=== PATIENT | male | born 1955 | race Caucasian/White ===

== ENCOUNTER 2021-12-26 13:12 | Outpatient (CLI) | payer MEDICARE, SELFPAY ==
--- NOTE | ~2021-12-26 | XR_ITS ---
EXAMINATION: XR abdomen/kub 1V INDICATION: Complicated urinary tract infection TECHNIQUE: Supine views of the abdomen were obtained on 2 radiographs. COMPARISON: None FINDINGS: No urolithiasis is identified. There are bone islands of the left sacrum and L2 vertebral b jacy on the right. The bowel gas pattern is normal. A moderate volume of colonic stool is present. Cho lecystectomy clips are noted. There is moderate osteoarthritis of the hips. A suprapubic catheter is noted. IMPRESSION: 1. No radiographic correlate for the patient's symptoms. Reviewed, dictated and finalized at location F. Y LEVEL BUSINESS ANALYST
--- NOTE | ~2021-12-26 | CT_ITS ---
EXAMINATION: CT abdomen pelvis wo con DATE: 12/26/2021 13:43 INDICATION: Complicated urinary tract infection TECHNIQUE: Computed tomography (CT) of the abdomen and pelvis was performed without intravenous contr ast. The dose-length product (DLP) was 689.52 mGy-cm. Automated exposure control and iterative recons truction technique were employed. COMPARISON: None FINDINGS: Minimal dependent atelectasis is present in the lung bases. The heart size is normal. The g allbladder is surgically absent. Pneumobilia is noted. A small amount of gas is also noted in the trejo creatic duct. The spleen, pancreas, and adrenal glands are normal. The right kidney is unremarkable. There is a 1.6 cm cyst of the left kidney. No pathologically enlarged abdominal or pelvic lymph nodes are identified. There is no free intraperitoneal gas or evidence of bowel obstruction. There is a barlow prapubic catheter in the urinary bladder. There is diffuse wall thickening of the urinary bladder wit h surrounding fat stranding. There is moderate lumbar spondylosis. A sclerotic lesion in the L2 verte bral body likely represents a bone island. IMPRESSION: 1. Suprapubic catheter in position with diffuse wall thickening of the urinary bladder and surroundin g fat stranding, likely cystitis. Reviewed, dictated and finalized at location F. MACHINIST IMPRESSION: 1. Suprapubic catheter in position with diffuse wall thickening of the urinary bladder and surrounding fat stranding, likely cystitis.
== END 2021-12-26 13:13 | disposition home or self-care (01) ==
PROVIDERS: Visit Provider Nurse Practitioner Adult Health
DX: N39.0 Urinary tract infection, site not specified (principal)
CPT/HCPCS: 74018; 74176

== ENCOUNTER 2022-01-07 19:57 | Inpatient (IN) | payer MEDICARE, SELFPAY ==
--- NOTE | ~2022-01-07 | XR_ITS ---
EXAMINATION: XR chest 2V Exam Date/Time: 01/07/2022 20:25 RRT HISTORY: r/o sepsis, HX MS, HEART STENT, HEART MONITOR Comparison: None available. RESULT: Lines, tubes, and devices: Cholecystectomy clips. Loop recorder.. Lungs and pleura: Minimal streaky bibasilar atelectasis/scar. Cardiomediastinal silhouette: Stable. Other: No acute osseous or upper abdominal finding. IMPRESSION: No acute cardiopulmonary process. Reviewed, dictated and finalized at location K.
[2022-01-07 19:59] VITALS: BP 134/88; PULSE 81; RESP 18; TEMP 36.8; O2SAT 96
--- NOTE | 2022-01-07 20:06 | ECG_ITS ---
Measurements Intervals [place] Rate: 76 P: 26 NE: 135 QRS: -2 QRSD: 86 T: 17 QT: 379 QTc: 428 Interpretive Statements SINUS RHYTHM DELAYED PRECORDIAL R/S TRANSITION BORDERLINE ECG NO PREVIOUS ECG AVAILABLE FOR COMPARISON Electronically Signed On 01-07-2022 23:22:50 BATTERY TECHNICIAN by Chencho Zapata D.O.
--- NOTE | 2022-01-07 20:34 | ED.MALEGU ---
HPI - Male Genitourinary General Chief complaint: Urogenital-Male Stated complaint: Ge Maldonado sent to er for ivabx and admission Time Seen by Provider: 01/07/22 20:34 Source: patient Mode of arrival: ambulatory Limitations: no limitations History of Present Illness HPI Narrative: Patient is a 66-year-old male with a history of insulin-dependent diabetes, hypertension, hyperlipidemia, pancreatitis, BPH, chronic urinary retention with recurrent urinary tract infections s/p suprapubic catheter placement presenting to the emergency department for evaluation of urinary tract infection. Patient has been on cefdinir, Bactrim, fluoroquinolone for urinary tract infection that is now resistant to all oral antibiotics. Lasha Trinh, nurse practitioner for urology called after she had referred the patient to the emergency department today. Patient reporting nausea, low-grade fever of 99 Fahrenheit this morning. Patient denies any current abdominal pain, no episodes of emesis. Pt denies flank pain. He denies pelvic pain or distention. Patient reports that the suprapubic catheter is in place but he can cap the catheter and will urinate through the urethra. Patient does report some burning urination with this. Related Data Home Medications Medication Instructions Recorded Confirmed aspirin 81 mg tablet,delayed mg 01/07/22 release blood-glucose sensor (Dexcom G6 01/07/22 01/07/22 Sensor device) blood-glucose transmitter (Dexcom 01/07/22 01/07/22 G6 Transmitter device) carvedilol 25 mg tablet mg 01/07/22 cefdinir 300 mg capsule mg 01/07/22 cholecalciferol (vitamin D3) 25 01/07/22 mcg (1,000 unit) tablet (Vitamin D3) cholecalciferol (vitamin D3) 25 01/07/22 mcg (1,000 unit) tablet (Vitamin D3) fenofibrate nanocrystallized 145 mg PO 01/07/22 mg tablet gabapentin 300 mg capsule mg 01/07/22 icosapent ethyl 1 gram capsule g PO 01/07/22 (Vascepa) insulin aspart U-100 100 unit/mL subcut 01/07/22 (3 mL) subcutaneous pen (Novolog Flexpen U-100 Insulin aspart) insulin glargine 100 unit/mL (3 unit subcut 01/07/22 mL) subcutaneous pen (Basaglar KwikPen U-100 Insulin) insulin pump cart,cont inf,BT 01/07/22 01/07/22 (Omnipod Dash Pods (Gen 4) subcutaneous cartridge) isosorbide mononitrate 30 mg mg PO 01/07/22 tablet,extended release 24 hr levofloxacin 500 mg tablet mg 01/07/22 ercmgg-rieoznzv-hdodvwa cap PO 01/07/22 24,000-76,000-120,000 unit capsule,delayed rel (Creon) lisinopril 2.5 mg tablet mg 01/07/22 metformin 1,000 mg tablet mg 01/07/22 oxybutynin chloride 10 mg mg PO 01/07/22 tablet,extended release 24 hr pantoprazole 40 mg tablet,delayed mg PO 01/07/22 release pen needle, diabetic 31 gauge x 01/07/22 01/07/2202/13 (UltiCare Pen Needle) pen needle, diabetic 31 gauge x 01/07/22 01/07/2202/13 (UltiCare Pen Needle) polyethylene glycol 3350 17 g 01/07/22 gram/dose oral powder sulfamethoxazole 800 tablet 01/07/22 mg-trimethoprim 160 mg tablet Allergies Allergy/AdvReac Type Severity Reaction Status Date / Time iohexol Allergy Difficulty Verified 01/07/22 20:02 [From contrast - CT, X-RAY] Breathing Review of Systems Review of Systems: CONSTITUTIONAL: Reports subjective fever EYES: Denies visual changes, redness, or discharge. ENT: Denies rhinorrhea, congestion, sore throat, or otalgia. CARDIOVASCULAR: Denies chest pain, palpitations, or edema. RESPIRATORY: Denies cough or dyspnea. GASTROINTESTINAL: Reports abdominal pain, nausea without vomiting GENITOURINARY: Reports dysuria, malodorous urine SKIN: Denies rash or itching. MUSCULOSKELETAL: Denies back pain, joint pain, or myalgia. NEUROLOGIC: Denies headache, numbness, or weakness. [facility] Past Medical History Medical History (Updated 01/07/22 @ 21:39 by Chloe Oneill MD) Hyperlipidemia Hypertension Insulin dependent diabetes mellitus Suprapubic catheter Urinary tract infection
[2022-01-07 20:39] LABS: Basophils Absolute Auto 0.1 K/mm3 (0.0-0.1); Basophils Percent Auto 0.7 % (0.2-1.2); Eosinophils Absolute Auto 0.2 K/mm3 (0-0.3); Eosinophils Percent Auto 1.4 % (0-4.4); Hematocrit 46.8 % (42.0-52.0); Hemoglobin 16.9 g/dL (14.0-18.0); Immature Granulocyte Absolute 0.06 K/mm3 (0.00-0.031); Immature Granulocyte Percent A 0.6 % (0-0.5); Lymphocytes Percent Auto 37.6 % (18.3-44.2); Mean Corpuscular HGB Conc 36.1 g/dl (32-36); Mean Corpuscular Hemoglobin 32.6 pg (26-34); Mean Corpuscular Volume 90.3 fl (80-100); Mean Platelet Volume 8.8 fl (7.4-10.4); Monocytes Absolute Auto 0.9 K/mm3 (0.1-0.6); Monocytes Percent Auto 8.3 % (2.6-8.5); Neutrophils Absolute Auto 5.3 K/mm3 (1.3-6.7); Neutrophils Percent Auto 51.4 % (45.5-73.1); Platelet Count Result 247 k/mm3 (150-375); Red Blood Count 5.18 M/mm3 (4.6-6.20); Red Cell Distribution Width 12.6 % (11.5-14.5); White Blood Count 10.4 K/mm3 (4.5-10.0)
[2022-01-07 20:50] LABS: Lactic Acid Reflex 2.1 mmol/L (0.7-2.0)
[2022-01-07 20:54] LABS: Alanine Aminotransferase 48 U/L (6-50); Albumin Level 4.5 g/dL (3.5-5.1); Alkaline Phosphatase 81 U/L (38-126); Anion Gap 11 mmol/L (8-16); Aspartate Amino Transferase 46 U/L (17-59); Blood Urea Nitrogen 23 mg/dL (9-20); CRP 0.6 mg/dL (<1.0); Carbon Dioxide 21 mmol/L (22-30); Chloride 101 mmol/L (98-107); Estimated CRCL calculation 56 ml/min; Estimated Glomerular Filt Rate 60; Glucose 295 mg/dL (65-110); INR 1.1; Lipase 131 U/L (23-300); Potassium 4.2 mmol/L (3.4-5.0); Prothrombin Time 13.3 Seconds (11.1-14.7); Sodium 133 mmol/L (137-145)
[2022-01-07 20:55] LABS: Partial Thromboplastin Time 24.6 SECONDS (22.3-36.8)
[2022-01-07 21:03] LABS: Troponin I < 0.012 ng/mL (0.000-0.034)
[2022-01-07 21:16] LABS: Influenza A QL RT-PCR Negative (Negative); Influenza B QL RT-PCR Negative (Negative); RSV RNA, RT-PCR Negative (Negative); SARS-CoV-2 RNA PCR Negative
[2022-01-07 21:31] VITALS: BP 114/74; PULSE 77; RESP 16; O2SAT 95
--- NOTE | 2022-01-07 21:32 | PM.IMHP ---
H&P: HPI History of Present Illness Date/Time: 01/07/22 21:32 Chief Complaint: fevers Narrative: This is a 66-year-old male with past medical history significant for recurrent urinary tract infections, urinary retention, status post suprapubic Romero catheter placement, Type 2 diabetes mellitus, insulin dependent, peripheral diabetic neuropathy, hypertension, restless leg syndrome, dyslipidemia, chronic pancreatitis, FERNANDEZ, patient underwent outpatient therapy for urinary tract infection completed course of antibiotics patient with tenderness and pain in the hypogastric area as well as lower back, however urinalysis redemonstrates the presence of urinary tract infection with multiple drug resistant microorganism patient was sent from Urology Clinic for further evaluation management and treatment. Review of Systems Review of Systems: fevers, chills, recurrent urinary tract infection, resistant microorganism any urine. Constitutional: Constitutional: Reports chills, Reports fatigue, Reports fever(s) and Reports malaise Eyes: Eyes: Denies change in vision ENT: Denies dysphagia, Denies vertigo, Denies dizziness and Denies odynophagia Cardiovascular: Cardiovascular: Denies chest pain, Denies leg edema and Denies lightheadedness Respiratory: Respiratory: Denies chest congestion, Denies cough, Denies dyspnea, Denies dyspnea on exertion and Denies wheezing Gastrointestinal: Gastrointestinal: Reports abdominal pain ( in hypogastric area), Denies dyspepsia, Denies heartburn, Denies nausea and Denies vomiting Genitourinary: Genitourinary: Reports dysuria Musculoskeletal: Musculoskeletal: Reports back pain Integumentary/Breasts: Skin/Breast: Denies rash Neurologic: Denies vertigo, Denies dizziness, Denies focal weakness and Denies Sensory deficit (Neuro) Psychiatric: Psychiatric: Reports no additional psychiatric complaints and Reports as per HPI Endocrine: Endocrine: Denies cold intolerance, Denies flushing, Denies heat intolerance, Denies polyphagia, Denies polydipsia and Denies palpitations Hematologic/Lymphatic: Hematologic/Lymphatic: Reports no additional hematologic/lymphatic complaints and Reports as per HPI Allergic/Immunologic: Allergic/Immunologic: Reports no additional allergic/immunologic complaints and Reports as per HPI PMF Past Medical History Medical History (Updated 01/08/22 @ 00:36 by Zee Calzada MD) Hyperlipidemia Hypertension Insulin dependent diabetes mellitus Suprapubic catheter Urinary tract infection Social History Social History (Updated 01/07/22 @ 21:37 by Chloe Oneill MD) Smoking status: Never smoker Second hand tobacco smoke exposure: No Alcohol intake: never Substance use: never Substance use type: does not use Lack of Transportation: No Lack of Food: Never True Current Housing: I Have Housing Concerned About Future Housing: No Difficulty Paying Gas/Electric Bills: No Difficulty Paying for Meds: No Currently Unemployed: No Education: Decline to Answer Difficulty w/ Childcare or Family Care: No Gender identity (if verbalized by the patient): Male Spiritual care concerns: No Meds Home Medications and Allergies Home Medications Medication Instructions Recorded Confirmed Type aspirin 81 mg tablet,delayed 81 mg PO DAILY 01/07/22 01/07/22 History release blood-glucose sensor (Dexcom G6 01/07/22 01/07/22 History Sensor device) blood-glucose transmitter (Dexcom 01/07/22 01/07/22 History G6 Transmitter device) carvedilol 25 mg tablet 25 mg PO Q12-24H 01/07/22 01/07/22 History cefdinir 300 mg capsule 300 mg PO BID 01/07/22 01/07/22 History cholecalciferol (vitamin D3) 25 50 mcg PO DAILY 01/07/22 01/07/22 History mcg (1,000 unit) tablet (Vitamin D3) fenofibrate nanocrystallized 145 145 mg PO DAILY 01/07/22 01/07/22 History mg tablet gabapentin 300 mg capsule 600 mg PO BID 01/07/22 01/07/22 History insulin glargine 100
[2022-01-07 21:50] LABS: Appearance Urine Clear (Clear); Bilirubin Urine Negative (Negative); Blood Urine 1+ (Negative); Color Urine Yellow (Yellow); Glucose Urine UA 3+ mg/dL (Negative); Ketones Urine Trace mg/dL (Negative); Leukocyte Esterase Ur Trace LEU/UL (Negative); Nitrate Urine Positive (Negative); Protein Urine 1+ mg/dL (Negative); Urobilinogen Urine 0.2 mg/dL (<2.0); pH Urine 5.5 (5.0-9.0)
[2022-01-07] MEDS: SODIUM CHLORIDE 0.9% IV 1,000 ML 999 ML IV CONT (21:53)
[2022-01-07 22:01] LABS: Mucus Urine Rare /lpf; WBC Urine 31-50 /hpf
[2022-01-07] MEDS: ERTAPENEM SODIUM 0.5 GM in SODIUM CHLORIDE 0.9% IV 50 ML IVPB (22:10)
[2022-01-07 22:12] LABS: Add Urine Microscopic? YES; Budding Yeast Urine Present /hpf
[2022-01-07 22:46] VITALS: BP 126/63; PULSE 76; RESP 12; O2SAT 97
--- NOTE | 2022-01-07 22:55 | PC.NURSE ---
Receiving 3rd Med/insole lip turner unable to take report at this time. Will call back when available.
[2022-01-07 23:10] VITALS: BP 154/95; PULSE 81; RESP 18; TEMP 36; O2SAT 99
[2022-01-07 23:13] VITALS: BMI 32.1
[2022-01-07 23:37] LABS: Reflex Lactic Acid Yes or No Add Lactic
[2022-01-08 00:25] LABS: Lactic Acid 1.4 mmol/L (0.7-2.0)
[2022-01-08 01:20] VITALS: PULSE 79; RESP 18; O2SAT 97
[2022-01-08 06:00] VITALS: BP 100/63; PULSE 62; RESP 16; TEMP 36.4; O2SAT 97
[2022-01-08 06:49] LABS: Basophils Absolute Auto 0.1 K/mm3 (0.0-0.1); Basophils Percent Auto 0.9 % (0.2-1.2); Eosinophils Absolute Auto 0.2 K/mm3 (0-0.3); Eosinophils Percent Auto 2.3 % (0-4.4); Hematocrit 42.5 % (42.0-52.0); Hemoglobin 14.9 g/dL (14.0-18.0); Immature Granulocyte Absolute 0.06 K/mm3 (0.00-0.031); Immature Granulocyte Percent A 0.7 % (0-0.5); Lymphocytes Absolute Auto 3.39 K/mm3 (0.9-3.2); Lymphocytes Percent Auto 41.2 % (18.3-44.2); Mean Corpuscular HGB Conc 35.1 g/dl (32-36); Mean Corpuscular Hemoglobin 32.2 pg (26-34); Mean Corpuscular Volume 91.8 fl (80-100); Mean Platelet Volume 8.7 fl (7.4-10.4); Monocytes Absolute Auto 0.8 K/mm3 (0.1-0.6); Monocytes Percent Auto 9.4 % (2.6-8.5); Neutrophils Absolute Auto 3.7 K/mm3 (1.3-6.7); Neutrophils Percent Auto 45.5 % (45.5-73.1); Platelet Count Result 203 k/mm3 (150-375); Red Blood Count 4.63 M/mm3 (4.6-6.20); Red Cell Distribution Width 12.5 % (11.5-14.5); White Blood Count 8.2 K/mm3 (4.5-10.0)
[2022-01-08 07:04] LABS: Alanine Aminotransferase 40 U/L (6-50); Albumin Level 3.7 g/dL (3.5-5.1); Alkaline Phosphatase 63 U/L (38-126); Anion Gap 5 mmol/L (8-16); Aspartate Amino Transferase 41 U/L (17-59); Bilirubin,Total 1.1 mg/dL (0.2-1.3); Blood Urea Nitrogen 18 mg/dL (9-20); Calcium 8.1 mg/dL (8.4-10.2); Carbon Dioxide 24 mmol/L (22-30); Chloride 106 mmol/L (98-107); Estimated CRCL calculation 73 ml/min; Estimated Glomerular Filt Rate > 60; Glucose 176 mg/dL (65-110); Lipase 116 U/L (23-300); Sodium 135 mmol/L (137-145)
[2022-01-08 07:40] LABS: Glucose Point of Care 174 mg/dl (65-105)
[2022-01-08] MEDS: LIPASE/AMYLASE/PROTEASE 12,000 UNITS CAP 6 CAP PO ×2 (09:03→16:02)
[2022-01-08 09:04] VITALS: PULSE 62
[2022-01-08] MEDS: carvediloL 25 MG TABLET PO ×2 (09:04→20:55)
[2022-01-08] MEDS: ROSUVASTATIN 10 MG TABLET 40 MG PO (09:04)
[2022-01-08] MEDS: FENOFIBRATE NANOCRYSTALLIZED 145 MG TABLET PO (09:04)
[2022-01-08] MEDS: ASPIRIN 81 MG ENTERIC TABLET PO (09:05)
[2022-01-08] MEDS: CHOLECALCIFEROL 1,000 UNITS TABLET 2000 UNITS PO (09:05)
[2022-01-08] MEDS: lisinopriL 2.5 MG TABLET PO (09:05)
[2022-01-08] MEDS: GABAPENTIN 300 MG CAPSULE 600 MG PO ×2 (09:05→16:02)
[2022-01-08] MEDS: PANTOPRAZOLE 40 MG TABLET PO (09:05)
[2022-01-08] MEDS: ISOSORBIDE MONONITRATE 15 MG TAB.ER.24H PO (09:05)
[2022-01-08] MEDS: polyethylene glycoL 3350 17 GM POWD.PACK PO ×2 (09:06→16:03)
[2022-01-08 10:53] LABS: Glucose Point of Care 390 mg/dl (65-105)
--- NOTE | 2022-01-08 10:59 | PM.IMPN ---
Progress Note: A&P Assessment and Plan (1) Urinary tract infection: Code(s): N39.0 - Urinary tract infection, site not specified Status: Acute Assessment and Plan: recurrent. Likely from chronic suprapubic catheter patient started on ertapenem cultures in progress urology consult (2) Dysuria: Code(s): R30.0 - Dysuria Status: Acute Assessment and Plan: as above (3) Insulin dependent diabetes mellitus: Status: Acute Assessment and Plan: Accu-Cheks AC and HS carb consistent diet patient on insulin pump at home continue glargine insulin sliding scale as needed (4) Chronic indwelling Romero catheter: Code(s): Z97.8 - Presence of other specified devices Status: Acute Assessment and Plan: Romero care Subjective Date/time seen: 01/08/22 10:59 no fever. Feels better Review of Systems Constitutional: Constitutional: Reports fatigue and Reports malaise Eyes: Eyes: Denies change in vision ENT: Denies dysphagia, Denies vertigo, Denies dizziness and Denies odynophagia Cardiovascular: Cardiovascular: Denies chest pain, Denies leg edema and Denies lightheadedness Respiratory: Respiratory: Denies chest congestion, Denies cough, Denies dyspnea, Denies dyspnea on exertion and Denies wheezing Gastrointestinal: Gastrointestinal: Reports abdominal pain ( in hypogastric area), Denies dyspepsia, Denies heartburn, Denies nausea and Denies vomiting Genitourinary: Genitourinary: Reports dysuria Musculoskeletal: Musculoskeletal: Reports back pain Integumentary/Breasts: Skin/Breast: Denies rash Neurologic: Denies vertigo, Denies dizziness, Denies focal weakness and Denies Sensory deficit (Neuro) Psychiatric: Psychiatric: Reports no additional psychiatric complaints and Reports as per HPI Endocrine: Endocrine: Denies cold intolerance, Denies flushing, Denies heat intolerance, Denies polyphagia, Denies polydipsia and Denies palpitations Hematologic/Lymphatic: Hematologic/Lymphatic: Reports no additional hematologic/lymphatic complaints and Reports as per HPI Allergic/Immunologic: Allergic/Immunologic: Reports no additional allergic/immunologic complaints and Reports as per HPI Exam Const: General: comfortable, no acute distress, well developed, alert, awake, ill appearing acutely and overweight Nutritional Appearance: average body habitus Orientation/consciousness: patient oriented x3 HENMT: Head: normal to inspection, normocephalic and atraumatic Ears: hearing grossly normal bilaterally Face/Nose/Sinus: normal facial exam Face and sinus: normal facial exam Eyes: General: appearance normal, both eyes and all related structures Pupils: Equal, round and reactive pupils present EOM: EOMs intact bilaterally Neck: Neck: full ROM, no lymphadenopathy and no JVD Thyroid: thyroid normal Lymphatic: no lymphadenopathy noted Resp: Effort & Inspection: normal respiratory effort and able to speak in complete sentences Auscultation: clear to auscultation bilaterally Cardio: Jugular venous distension: no JVD Rate: regular rate Rhythm: regular rhythm Heart sounds: S1 normal heart sound present and S2 normal heart sound present GI: Inspection: other ( supply pubic catheter in place) GI Palp: Yes Soft to palpation, Yes Tenderness to palpation present (GI) ( hypogastric area) and Yes No hepatosplenomegaly present : General: Yes deferred Skin: Rashes: no rashes Other: suprapubic catheter Neuro: General: patient oriented x3 and CN's II-XI intact bilaterally Cranial nerves: Yes CN's II-XII intact bilaterally and Yes Equal, round and reactive pupils present Cognition (Neuro): normal cognition Speech: normal speech Gait exam (Neuro): Unable to assess gait Motor exam (neuro): 5/5 motor strength present throughout Extrem: General: normal to inspection, full ROM, no joint enlargement and no pedal edema Objective Data Vital Signs Vital Signs: Harini
[2022-01-08] MEDS: INSULIN ASPART (*BKC) 100 UNITS/ML SUB-Q ×3 (11:17→16:03)
--- NOTE | 2022-01-08 12:12 | WPDURCON ---
Assessment and Plan Assessment and plan (1) Chronic indwelling Romero catheter: Code(s): Z97.8 - Presence of other specified devices Status: Acute Assessment and Plan: SP tube changed on 01/02/22, not due again until 02/01/22. He has an appt with Dr. Atkins on 01/23/22 at 2pm for evaluation of chronic UTI's for a possible scope in the office. (2) Dysuria: Code(s): R30.0 - Dysuria Status: Acute (3) Urinary tract infection: Code(s): N39.0 - Urinary tract infection, site not specified Status: Acute (4) Klebsiella infection: Code(s): A49.8 - Other bacterial infections of unspecified site Status: Acute Assessment and Plan: Continue culture sensitive Invanz, repeat culture is pending at this time. Patient hasn't felt any improvement since starting IV antibiotics. Urology Consult Note HPI Date Seen: 01/08/22 Time Seen: 11:15 Requesting Physician: Jose Phelan MD Primary Care Provider: PHYSICIAN NOT ON STAFF Consult Narrative Reason for consult: Multi Drug Resistant UTI Narrative: Alex Marcum is a 66 year old male who presented to the ER for ongoing dysuria in his abdomen area around his SP tube when clamped/plugged, low grade fever at home, severe fatigue, cloudy, malodorous urine and failed treatment for an ongoing UTI that was diagnosed in our office one month ago on 12/05/21. His culture at that time grew Klebsiella only sensitive to Bactrim PO, otherwise multidrug resistant to all other oral antibiotics. He was given this for 2 weeks BID and his SP tube was changed at that time. He then f/u on 01/02/22 for another SP tube change and we repeated his urine as he continued to feel severe fatigue pain at his SP tube site and malodorous urine with a low grade fever. His repeat culture grew Klebsiella again but this time resistant to all oral antibiotics. I instructed him that we could try outpatient IV antibiotics, but he stated he was febrile and had abdominal pain therefore I recommended he proceed to the ER. I then called the ER and gave report to DR. Oneill and let her know he was sensitive to Invanz and would likely need to be admitted for IV antibiotics. His WBC is 8.2 and was 10 upon arrival. He is afebrile, creatinine is 0.90. Review of Systems Constitutional: Constitutional: Reports body ache(s), Reports fatigue and Reports lethargy Cardiovascular: Cardiovascular: Denies chest pain Respiratory: Respiratory: Denies no additional respiratory complaints Gastrointestinal: Gastrointestinal: Reports abdominal pain, Denies nausea and Denies vomiting Genitourinary: Genitourinary: Denies hematuria, Reports dysuria and Denies flank pain PMFSH Past Medical History Medical History Hyperlipidemia Hypertension Insulin dependent diabetes mellitus Suprapubic catheter Urinary tract infection Social History Social History Smoking status: Never smoker Second hand tobacco smoke exposure: No Alcohol intake: never Substance use: never Substance use type: does not use Lack of Transportation: No Lack of Food: Never True Current Housing: I Have Housing Concerned About Future Housing: No Difficulty Paying Gas/Electric Bills: No Difficulty Paying for Meds: No Currently Unemployed: No Education: Decline to Answer Difficulty w/ Childcare or Family Care: No Gender identity (if verbalized by the patient): Male Spiritual care concerns: No Meds Home Medications and Allergies Home Medications Medication Instructions Recorded Confirmed Type aspirin 81 mg tablet,delayed 81 mg PO DAILY 01/07/22 01/07/22 History release blood-glucose sensor (Dexcom G6 01/07/22 01/07/22 History Sensor device) blood-glucose transmitter (Dexcom 01/07/22 01/07/22 History G6 Transmitter device) carvedilol 25 mg tablet 2
[2022-01-08 14:00] VITALS: BP 120/52; PULSE 70; RESP 16; TEMP 35.8; O2SAT 93
[2022-01-08 14:32] LABS: Glucose Point of Care 377 mg/dl (65-105)
[2022-01-08 16:18] LABS: Glucose Point of Care 351 mg/dl (65-105)
[2022-01-08 20:55] VITALS: PULSE 56
[2022-01-08] MEDS: rOPINIRole HCL 0.25 MG TABLET PO (20:55)
[2022-01-08] MEDS: ERTAPENEM SODIUM 0.5 GM in SODIUM CHLORIDE 0.9% IV 50 ML IVPB (20:57)
[2022-01-08] MEDS: INSULIN GLARGINE (*BKC) 100 UNITS/ML 16 UNITS SUB-Q (20:58)
[2022-01-08 21:41] LABS: Glucose Point of Care 309 mg/dl (65-105)
[2022-01-08 22:00] VITALS: PULSE 56; RESP 14; TEMP 35.7; O2SAT 92
[2022-01-08] MEDS: INSULIN ASPART (*BKC) 100 UNITS/ML 6 UNITS SUB-Q (23:16)
[2022-01-09 06:00] VITALS: BP 90/40; PULSE 64; RESP 16; TEMP 35.5; O2SAT 97
[2022-01-09 07:05] VITALS: BP 103/67
[2022-01-09 08:27] LABS: Glucose Point of Care 162 mg/dl (65-105)
[2022-01-09] MEDS: ROSUVASTATIN 10 MG TABLET 40 MG PO (09:08)
[2022-01-09] MEDS: ASPIRIN 81 MG ENTERIC TABLET PO (09:08)
[2022-01-09 09:09] VITALS: PULSE 64
[2022-01-09] MEDS: ISOSORBIDE MONONITRATE 15 MG TAB.ER.24H PO (09:09)
[2022-01-09] MEDS: PANTOPRAZOLE 40 MG TABLET PO (09:09)
[2022-01-09] MEDS: lisinopriL 2.5 MG TABLET PO (09:09)
[2022-01-09] MEDS: FENOFIBRATE NANOCRYSTALLIZED 145 MG TABLET PO (09:09)
[2022-01-09] MEDS: CHOLECALCIFEROL 1,000 UNITS TABLET 2000 UNITS PO (09:09)
[2022-01-09] MEDS: LIPASE/AMYLASE/PROTEASE 12,000 UNITS CAP 6 CAP PO ×3 (09:09→16:46)
[2022-01-09] MEDS: GABAPENTIN 300 MG CAPSULE 600 MG PO ×2 (09:09→16:45)
[2022-01-09] MEDS: carvediloL 25 MG TABLET PO ×2 (09:09→22:17)
[2022-01-09] MEDS: polyethylene glycoL 3350 17 GM POWD.PACK PO ×2 (09:10→16:46)
[2022-01-09] MEDS: INSULIN ASPART (*BKC) 100 UNITS/ML SUB-Q ×5 (09:10→16:46)
[2022-01-09 12:01] LABS: Glucose Point of Care 242 mg/dl (65-105)
--- NOTE | 2022-01-09 12:28 | PM.IMPN ---
Progress Note: A&P Assessment and Plan (1) Urinary tract infection: Code(s): N39.0 - Urinary tract infection, site not specified Status: Acute Assessment and Plan: recurrent. Likely from chronic suprapubic catheter patient started on ertapenem cultures in progress urology consult (2) Dysuria: Code(s): R30.0 - Dysuria Status: Acute Assessment and Plan: as above (3) Insulin dependent diabetes mellitus: Status: Acute Assessment and Plan: Accu-Cheks AC and HS carb consistent diet patient on insulin pump at home continue glargine insulin sliding scale as needed (4) Chronic indwelling Romero catheter: Code(s): Z97.8 - Presence of other specified devices Status: Acute Assessment and Plan: Romero care Subjective Date/time seen: 01/09/22 12:28 Pain control. Exam Const: General: comfortable, no acute distress, well developed, alert, awake, ill appearing acutely, average body habitus and overweight Nutritional Appearance: average body habitus and overweight Orientation/consciousness: patient oriented x3 HENMT: Head: normal to inspection, normocephalic and atraumatic Ears: hearing grossly normal bilaterally Face/Nose/Sinus: normal facial exam Face and sinus: normal facial exam Eyes: General: appearance normal, both eyes and all related structures Pupils: Equal, round and reactive pupils present EOM: EOMs intact bilaterally Neck: Neck: full ROM, no lymphadenopathy and no JVD Thyroid: thyroid normal Lymphatic: no lymphadenopathy noted Resp: Effort & Inspection: normal respiratory effort and able to speak in complete sentences Auscultation: clear to auscultation bilaterally Cardio: Jugular venous distension: no JVD Rate: regular rate Rhythm: regular rhythm Heart sounds: S1 normal heart sound present and S2 normal heart sound present GI: Inspection: other ( supply pubic catheter in place) : General: Yes deferred Skin: Rashes: no rashes Other: suprapubic catheter Neuro: General: patient oriented x3, CN's II-XI intact bilaterally and Unable to assess gait Cranial nerves: Yes CN's II-XII intact bilaterally and Yes Equal, round and reactive pupils present Cognition (Neuro): normal cognition Speech: normal speech Gait exam (Neuro): Unable to assess gait Motor exam (neuro): 5/5 motor strength present throughout Sensory Exam: No Sensory deficit (Neuro) Extrem: General: normal to inspection, full ROM, no joint enlargement and no pedal edema Objective Data Vital Signs Vital Signs: Vital Signs - 24 hr 01/08/22 14:00 01/08/22 20:55 01/08/22 22:00 Temperature 96.4 F L 96.3 F L Pulse Rate 70 56 L 56 L Respiratory Rate 16 14 Blood Pressure 120/52 L Pulse Oximetry 93 92 Oxygen Delivery 01/08/22 20:00 01/09/22 06:00 01/09/22 07:05 Temperature 95.9 F L Pulse Rate 64 Respiratory Rate 16 Blood Pressure 90/40 L 103/67 Pulse Oximetry 97 Oxygen Delivery Room Air 01/09/22 09:09 01/09/22 08:45 Temperature Pulse Rate 64 Respiratory Rate Blood Pressure Pulse Oximetry Oxygen Delivery Room Air Intake/Output Intake/Output: Intake & Output 01/06/22 01/07/22 01/08/22 01/09/22 23:59 23:59 23:59 23:59 Intake Total 7920 031 6166 Output Total 1100 2000 Balance 7477 -234 -485 Meds/Results Medications: Active Medications Generic Name Dose Route Start Last Admin Trade Name Freq PRN Reason Stop Dose Admin Acetaminophen 650 mg 01/07/22 21:43 Acetaminophen 325 Mg Tablet PO Q4H PRN Mild Pain (1-3) or Fever Lipase/Protease/Amylase 6 cap 01/08/22 08:00 01/09/22 09:09 Lipase/Amylase/Protease 12,000 Units Cap PO 6 cap TIDWM ANGIE Administration Aspirin 81 mg 01/08/22 09:00 01/09/22 09:08 Aspirin 81 Mg Enteric Tablet PO 81 mg DAILY ANGIE Administration Carvedilol 25 mg 01/08/22 09:00 01/09/22 09:09 Carvedilol 25 Mg Tablet PO 25 mg Q12H
--- NOTE | 2022-01-09 12:32 | PM.IMPN ---
Progress Note: A&P Assessment and Plan (1) Urinary tract infection: Code(s): N39.0 - Urinary tract infection, site not specified Status: Acute Assessment and Plan: recurrent. Likely from chronic suprapubic catheter patient started on ertapenem cultures in progress urology consult (2) Dysuria: Code(s): R30.0 - Dysuria Status: Acute Assessment and Plan: as above (3) Insulin dependent diabetes mellitus: Status: Acute Assessment and Plan: Accu-Cheks AC and HS carb consistent diet patient on insulin pump at home continue glargine insulin sliding scale as needed (4) Chronic indwelling Romero catheter: Code(s): Z97.8 - Presence of other specified devices Status: Acute Assessment and Plan: Romero care Subjective Date/time seen: 01/09/22 12:32 No complaints Exam Const: General: comfortable, no acute distress, well developed, alert, awake, ill appearing acutely, average body habitus and overweight Nutritional Appearance: average body habitus and overweight Orientation/consciousness: patient oriented x3 HENMT: Head: normal to inspection, normocephalic and atraumatic Ears: hearing grossly normal bilaterally Face/Nose/Sinus: normal facial exam Face and sinus: normal facial exam Eyes: General: appearance normal, both eyes and all related structures Pupils: Equal, round and reactive pupils present EOM: EOMs intact bilaterally Neck: Neck: full ROM, no lymphadenopathy and no JVD Thyroid: thyroid normal Lymphatic: no lymphadenopathy noted Resp: Effort & Inspection: normal respiratory effort and able to speak in complete sentences Auscultation: clear to auscultation bilaterally Cardio: Jugular venous distension: no JVD Rate: regular rate Rhythm: regular rhythm Heart sounds: S1 normal heart sound present and S2 normal heart sound present GI: Inspection: other ( supply pubic catheter in place) : General: Yes deferred Skin: Rashes: no rashes Other: suprapubic catheter Neuro: General: patient oriented x3, CN's II-XI intact bilaterally and Unable to assess gait Cranial nerves: Yes CN's II-XII intact bilaterally and Yes Equal, round and reactive pupils present Cognition (Neuro): normal cognition Speech: normal speech Gait exam (Neuro): Unable to assess gait Motor exam (neuro): 5/5 motor strength present throughout Sensory Exam: No Sensory deficit (Neuro) Extrem: General: normal to inspection, full ROM, no joint enlargement and no pedal edema Objective Data Vital Signs Vital Signs: Vital Signs - 24 hr 01/08/22 14:00 01/08/22 20:55 01/08/22 22:00 Temperature 96.4 F L 96.3 F L Pulse Rate 70 56 L 56 L Respiratory Rate 16 14 Blood Pressure 120/52 L Pulse Oximetry 93 92 Oxygen Delivery 01/08/22 20:00 01/09/22 06:00 01/09/22 07:05 Temperature 95.9 F L Pulse Rate 64 Respiratory Rate 16 Blood Pressure 90/40 L 103/67 Pulse Oximetry 97 Oxygen Delivery Room Air 01/09/22 09:09 01/09/22 08:45 Temperature Pulse Rate 64 Respiratory Rate Blood Pressure Pulse Oximetry Oxygen Delivery Room Air Intake/Output Intake/Output: Intake & Output 01/06/22 01/07/22 01/08/22 01/09/22 23:59 23:59 23:59 23:59 Intake Total 9417 633 7937 Output Total 1100 2000 Balance 3599 -745 -755 Meds/Results Medications: Active Medications Generic Name Dose Route Start Last Admin Trade Name Freq PRN Reason Stop Dose Admin Acetaminophen 650 mg 01/07/22 21:43 Acetaminophen 325 Mg Tablet PO Q4H PRN Mild Pain (1-3) or Fever Lipase/Protease/Amylase 6 cap 01/08/22 08:00 01/09/22 09:09 Lipase/Amylase/Protease 12,000 Units Cap PO 6 cap TIDWM ANGIE Administration Aspirin 81 mg 01/08/22 09:00 01/09/22 09:08 Aspirin 81 Mg Enteric Tablet PO 81 mg DAILY ANGIE Administration Carvedilol 25 mg 01/08/22 09:00 01/09/22 09:09 Carvedilol 25 Mg Tablet PO 25 mg Q12H
[2022-01-09 14:00] VITALS: BP 108/64; PULSE 61; RESP 16; TEMP 36.8; O2SAT 95
[2022-01-09] MEDS: ERTAPENEM 1 GM/NS 50 ML 1 GM/50 ML BAG IVPB (16:45)
[2022-01-09 17:01] LABS: Glucose Point of Care 291 mg/dl (65-105)
[2022-01-09 21:12] LABS: Glucose Point of Care 273 mg/dl (65-105)
[2022-01-09 22:00] VITALS: BP 125/58; PULSE 74; RESP 16; TEMP 35.9; O2SAT 98
[2022-01-09 22:17] VITALS: PULSE 72
[2022-01-09] MEDS: rOPINIRole HCL 0.25 MG TABLET PO (22:17)
[2022-01-09] MEDS: INSULIN GLARGINE (*BKC) 100 UNITS/ML 16 UNITS SUB-Q (22:19)
[2022-01-10 07:00] VITALS: BP 93/46; PULSE 64; RESP 16; TEMP 36.2; O2SAT 95
[2022-01-10 07:53] LABS: Glucose Point of Care 145 mg/dl (65-105)
[2022-01-10 08:37] LABS: Anion Gap 6 mmol/L (8-16); Blood Urea Nitrogen 20 mg/dL (9-20); Calcium 8.8 mg/dL (8.4-10.2); Carbon Dioxide 29 mmol/L (22-30); Chloride 103 mmol/L (98-107); Estimated CRCL calculation 61 ml/min; Estimated Glomerular Filt Rate > 60; Glucose 157 mg/dL (65-110); Potassium 4.3 mmol/L (3.4-5.0); Sodium 138 mmol/L (137-145)
[2022-01-10] MEDS: CHOLECALCIFEROL 1,000 UNITS TABLET 2000 UNITS PO (09:10)
[2022-01-10] MEDS: LIPASE/AMYLASE/PROTEASE 12,000 UNITS CAP 6 CAP PO ×3 (09:10→17:23)
[2022-01-10] MEDS: ASPIRIN 81 MG ENTERIC TABLET PO (09:10)
[2022-01-10] MEDS: ROSUVASTATIN 10 MG TABLET 40 MG PO (09:10)
[2022-01-10] MEDS: PANTOPRAZOLE 40 MG TABLET PO (09:10)
[2022-01-10] MEDS: GABAPENTIN 300 MG CAPSULE 600 MG PO ×2 (09:10→17:23)
[2022-01-10 09:11] VITALS: PULSE 74
[2022-01-10] MEDS: lisinopriL 2.5 MG TABLET PO (09:11)
[2022-01-10] MEDS: polyethylene glycoL 3350 17 GM POWD.PACK PO (09:11)
[2022-01-10] MEDS: ISOSORBIDE MONONITRATE 15 MG TAB.ER.24H PO (09:11)
[2022-01-10] MEDS: carvediloL 25 MG TABLET PO ×2 (09:11→20:55)
[2022-01-10] MEDS: FENOFIBRATE NANOCRYSTALLIZED 145 MG TABLET PO (09:11)
[2022-01-10 11:20] LABS: Glucose Point of Care 255 mg/dl (65-105)
--- NOTE | 2022-01-10 11:24 | PM.IMPN ---
Progress Note: A&P Assessment and Plan (1) Urinary tract infection: Code(s): N39.0 - Urinary tract infection, site not specified Status: Acute Assessment and Plan: recurrent. Likely from chronic suprapubic catheter patient started on ertapenem cultures noted lead IV antibiotics to complete a 5-7 days. Will defer to Urology for duration urology consult (2) Dysuria: Code(s): R30.0 - Dysuria Status: Acute Assessment and Plan: as above (3) Insulin dependent diabetes mellitus: Status: Acute Assessment and Plan: Accu-Cheks AC and HS carb consistent diet patient on insulin pump at home continue glargine insulin sliding scale as needed (4) Chronic indwelling Romero catheter: Code(s): Z97.8 - Presence of other specified devices Status: Acute Assessment and Plan: Romero care Subjective Date/time seen: 01/10/22 11:24 no complaints Exam Const: General: comfortable, no acute distress, well developed, alert, awake, ill appearing acutely, average body habitus and overweight Nutritional Appearance: average body habitus and overweight Orientation/consciousness: patient oriented x3 HENMT: Head: normal to inspection, normocephalic and atraumatic Ears: hearing grossly normal bilaterally Face/Nose/Sinus: normal facial exam Face and sinus: normal facial exam Eyes: General: appearance normal, both eyes and all related structures Pupils: Equal, round and reactive pupils present EOM: EOMs intact bilaterally Neck: Neck: full ROM, no lymphadenopathy and no JVD Thyroid: thyroid normal Lymphatic: no lymphadenopathy noted Resp: Effort & Inspection: normal respiratory effort and able to speak in complete sentences Auscultation: clear to auscultation bilaterally Cardio: Jugular venous distension: no JVD Rate: regular rate Rhythm: regular rhythm Heart sounds: S1 normal heart sound present and S2 normal heart sound present GI: Inspection: other ( supply pubic catheter in place) : General: Yes deferred Skin: Rashes: no rashes Other: suprapubic catheter Neuro: General: patient oriented x3, CN's II-XI intact bilaterally and Unable to assess gait Cranial nerves: Yes CN's II-XII intact bilaterally and Yes Equal, round and reactive pupils present Cognition (Neuro): normal cognition Speech: normal speech Gait exam (Neuro): Unable to assess gait Motor exam (neuro): 5/5 motor strength present throughout Sensory Exam: No Sensory deficit (Neuro) Extrem: General: normal to inspection, full ROM, no joint enlargement and no pedal edema Objective Data Vital Signs Vital Signs: Vital Signs - 24 hr 01/09/22 14:00 01/09/22 22:17 01/09/22 22:00 Temperature 98.2 F 96.7 F L Pulse Rate 61 72 74 Respiratory Rate 16 16 Blood Pressure 108/64 125/58 L Pulse Oximetry 95 98 Oxygen Delivery 01/09/22 20:00 01/10/22 07:00 01/10/22 09:11 Temperature 97.1 F L Pulse Rate 64 74 Respiratory Rate 16 Blood Pressure 93/46 L Pulse Oximetry 95 Oxygen Delivery CPAP 01/10/22 08:00 Temperature Pulse Rate Respiratory Rate Blood Pressure Pulse Oximetry Oxygen Delivery Room Air Intake/Output Intake/Output: Intake & Output 01/07/22 01/08/22 01/09/22 01/10/22 23:59 23:59 23:59 23:59 Intake Total 5433 850 7092 490 Output Total 1100 3450 6725 Balance 6722 -174 -512 -0139 Meds/Results Medications: Active Medications Generic Name Dose Route Start Last Admin Trade Name Freq PRN Reason Stop Dose Admin Acetaminophen 650 mg 01/07/22 21:43 Acetaminophen 325 Mg Tablet PO Q4H PRN Mild Pain (1-3) or Fever Lipase/Protease/Amylase 6 cap 01/08/22 08:00 01/10/22 09:10 Lipase/Amylase/Protease 12,000 Units Cap PO 6 cap TIDWM ANGIE Administration Aspirin 81 mg 01/08/22 09:00 01/10/22 09:10 Aspirin 81 Mg Enteric Tablet PO 81 mg DAILY ANGIE Administration Carvedilol 25 mg 01/08/22 09:00
[2022-01-10] MEDS: INSULIN ASPART (*BKC) 100 UNITS/ML SUB-Q ×4 (11:54→17:24)
[2022-01-10] MEDS: ERTAPENEM 1 GM/NS 50 ML 1 GM/50 ML BAG IVPB (13:40)
[2022-01-10 13:48] VITALS: BP 96/61; PULSE 61; RESP 16; TEMP 35.9; O2SAT 98
[2022-01-10 16:57] LABS: Glucose Point of Care 323 mg/dl (65-105)
[2022-01-10] MEDS: INSULIN GLARGINE (*BKC) 100 UNITS/ML 16 UNITS SUB-Q (20:54)
[2022-01-10 20:55] VITALS: PULSE 68
[2022-01-10] MEDS: rOPINIRole HCL 0.25 MG TABLET PO (20:55)
[2022-01-10 21:35] LABS: Glucose Point of Care 204 mg/dl (65-105)
[2022-01-10 22:00] VITALS: BP 107/43; PULSE 57; RESP 18; TEMP 36.2; O2SAT 96
[2022-01-11] VITALS (7 sets, daily range): BP systolic 104–130; BP diastolic 54–68; PULSE 61–78; RESP 14–16; TEMP 36–36.2; O2SAT 95–98
[2022-01-11 08:03] LABS: Glucose Point of Care 158 mg/dl (65-105)
[2022-01-11] MEDS: GABAPENTIN 300 MG CAPSULE 600 MG PO ×2 (08:22→17:15)
[2022-01-11] MEDS: ISOSORBIDE MONONITRATE 15 MG TAB.ER.24H PO (08:22)
[2022-01-11] MEDS: ROSUVASTATIN 10 MG TABLET 40 MG PO (08:22)
[2022-01-11] MEDS: LIPASE/AMYLASE/PROTEASE 12,000 UNITS CAP 6 CAP PO ×3 (08:22→17:14)
[2022-01-11] MEDS: carvediloL 25 MG TABLET PO ×2 (08:22→20:28)
[2022-01-11] MEDS: PANTOPRAZOLE 40 MG TABLET PO (08:23)
[2022-01-11] MEDS: FENOFIBRATE NANOCRYSTALLIZED 145 MG TABLET PO (08:23)
[2022-01-11] MEDS: ASPIRIN 81 MG ENTERIC TABLET PO (08:23)
[2022-01-11] MEDS: lisinopriL 2.5 MG TABLET PO (08:23)
[2022-01-11] MEDS: CHOLECALCIFEROL 1,000 UNITS TABLET 2000 UNITS PO (08:23)
[2022-01-11] MEDS: INSULIN ASPART (*BKC) 100 UNITS/ML SUB-Q ×4 (08:23→17:43)
[2022-01-11 11:47] LABS: Glucose Point of Care 195 mg/dl (65-105)
--- NOTE | 2022-01-11 11:57 | PM.IMPN ---
Progress Note: A&P Assessment and Plan (1) Urinary tract infection: Code(s): N39.0 - Urinary tract infection, site not specified Status: Acute Assessment and Plan: recurrent. Likely from chronic suprapubic catheter patient started on ertapenem cultures noted continue IV antibiotics to complete 7 days. (2) Dysuria: Code(s): R30.0 - Dysuria Status: Acute Assessment and Plan: as above (3) Insulin dependent diabetes mellitus: Status: Acute Assessment and Plan: Accu-Cheks AC and HS carb consistent diet patient on insulin pump at home continue glargine insulin sliding scale as needed (4) Chronic indwelling Romero catheter: Code(s): Z97.8 - Presence of other specified devices Status: Acute Assessment and Plan: Romero care Subjective Date/time seen: 01/11/22 11:57 no complaints Exam Const: General: comfortable, no acute distress, well developed, alert, awake, ill appearing acutely, average body habitus and overweight Nutritional Appearance: average body habitus and overweight Orientation/consciousness: patient oriented x3 HENMT: Head: normal to inspection, normocephalic and atraumatic Ears: hearing grossly normal bilaterally Face/Nose/Sinus: normal facial exam Face and sinus: normal facial exam Eyes: General: appearance normal, both eyes and all related structures Pupils: Equal, round and reactive pupils present EOM: EOMs intact bilaterally Neck: Neck: full ROM, no lymphadenopathy and no JVD Thyroid: thyroid normal Lymphatic: no lymphadenopathy noted Resp: Effort & Inspection: normal respiratory effort and able to speak in complete sentences Auscultation: clear to auscultation bilaterally Cardio: Jugular venous distension: no JVD Rate: regular rate Rhythm: regular rhythm Heart sounds: S1 normal heart sound present and S2 normal heart sound present GI: Inspection: other ( supply pubic catheter in place) : General: Yes deferred Skin: Rashes: no rashes Other: suprapubic catheter Neuro: General: patient oriented x3, CN's II-XI intact bilaterally and Unable to assess gait Cranial nerves: Yes CN's II-XII intact bilaterally and Yes Equal, round and reactive pupils present Cognition (Neuro): normal cognition Speech: normal speech Gait exam (Neuro): Unable to assess gait Motor exam (neuro): 5/5 motor strength present throughout Sensory Exam: No Sensory deficit (Neuro) Extrem: General: normal to inspection, full ROM, no joint enlargement and no pedal edema Objective Data Vital Signs Vital Signs: Vital Signs - 24 hr 01/10/22 13:48 01/10/22 20:55 01/10/22 20:00 Temperature 96.7 F L Pulse Rate 61 68 Respiratory Rate 16 Blood Pressure 96/61 L Pulse Oximetry 98 Oxygen Delivery Room Air 01/10/22 22:00 01/11/22 05:27 01/11/22 00:53 Temperature 97.1 F L 97 F L Pulse Rate 57 L 65 61 Respiratory Rate 18 14 14 Blood Pressure 107/43 L 104/68 Pulse Oximetry 96 95 95 Oxygen Delivery Autopap 01/11/22 08:22 01/11/22 08:00 Temperature Pulse Rate 78 Respiratory Rate Blood Pressure Pulse Oximetry Oxygen Delivery Room Air Intake/Output Intake/Output: Intake & Output 01/08/22 01/09/22 01/10/22 01/11/22 23:59 23:59 23:59 23:59 Intake Total 494 3224 1520 1084 Output Total 1100 3450 3100 2200 [facility]606 -226 -1580 -1116 Meds/Results Medications: Active Medications Generic Name Dose Route Start Last Admin Trade Name Freq PRN Reason Stop Dose Admin Acetaminophen 650 mg 01/07/22 21:43 Acetaminophen 325 Mg Tablet PO Q4H PRN Mild Pain (1-3) or Fever Lipase/Protease/Amylase 6 cap 01/08/22 08:00 01/11/22 08:22 Lipase/Amylase/Protease 12,000 Units Cap PO 6 cap TIDWM ANGIE Administration Aspirin 81 mg 01/08/22 09:00 01/11/22 08:23 Aspirin 81 Mg Enteric Tablet PO 81 mg DAILY ANGIE Administration Carvedilol 25 mg 01/08/22 09:00 01/11/22 08:
[2022-01-11] MEDS: ERTAPENEM 1 GM/NS 50 ML 1 GM/50 ML BAG IVPB (14:21)
[2022-01-11 16:34] LABS: Glucose Point of Care 260 mg/dl (65-105)
[2022-01-11 17:43] LABS: Glucose Point of Care 304 mg/dl (65-105)
[2022-01-11 20:01] LABS: Glucose Point of Care 347 mg/dl (65-105)
[2022-01-11] MEDS: INSULIN GLARGINE (*BKC) 100 UNITS/ML 16 UNITS SUB-Q (20:25)
[2022-01-11] MEDS: rOPINIRole HCL 0.25 MG TABLET PO (20:26)
--- NOTE | 2022-01-12 02:54 | PC.NURSE ---
irrigated clements per pt request, pt stated urinating from penis, only 1000ml of urine in clements bag. Yellow clear urine aspirated and yellow urine present in bag. clements patent and draining.
[2022-01-12 06:00] VITALS: BP 103/48; PULSE 69; RESP 17; TEMP 36.6; O2SAT 96
[2022-01-12 08:36] LABS: Glucose Point of Care 155 mg/dl (65-105)
[2022-01-12] MEDS: FENOFIBRATE NANOCRYSTALLIZED 145 MG TABLET PO (09:16)
[2022-01-12] MEDS: LIPASE/AMYLASE/PROTEASE 12,000 UNITS CAP 6 CAP PO ×3 (09:16→17:59)
[2022-01-12] MEDS: CHOLECALCIFEROL 1,000 UNITS TABLET 2000 UNITS PO (09:16)
[2022-01-12] MEDS: ROSUVASTATIN 10 MG TABLET 40 MG PO (09:16)
[2022-01-12 09:17] VITALS: PULSE 70
[2022-01-12] MEDS: lisinopriL 2.5 MG TABLET PO (09:17)
[2022-01-12] MEDS: polyethylene glycoL 3350 17 GM POWD.PACK PO (09:17)
[2022-01-12] MEDS: ISOSORBIDE MONONITRATE 15 MG TAB.ER.24H PO (09:17)
[2022-01-12] MEDS: PANTOPRAZOLE 40 MG TABLET PO (09:17)
[2022-01-12] MEDS: GABAPENTIN 300 MG CAPSULE 600 MG PO ×2 (09:17→17:12)
[2022-01-12] MEDS: carvediloL 25 MG TABLET PO ×2 (09:17→20:49)
[2022-01-12] MEDS: ASPIRIN 81 MG ENTERIC TABLET PO (09:17)
[2022-01-12] MEDS: INSULIN ASPART (*BKC) 100 UNITS/ML SUB-Q ×5 (09:18→17:14)
--- NOTE | 2022-01-12 10:11 | PM.IMPN ---
Progress Note: A&P Assessment and Plan (1) Urinary tract infection: Code(s): N39.0 - Urinary tract infection, site not specified Status: Acute Assessment and Plan: recurrent. Likely from chronic suprapubic catheter patient started on ertapenem cultures noted continue IV antibiotics to complete 7 days. (2) Dysuria: Code(s): R30.0 - Dysuria Status: Acute Assessment and Plan: as above (3) Insulin dependent diabetes mellitus: Status: Acute Assessment and Plan: Accu-Cheks AC and HS carb consistent diet patient on insulin pump at home continue glargine insulin sliding scale as needed (4) Chronic indwelling Romero catheter: Code(s): Z97.8 - Presence of other specified devices Status: Acute Assessment and Plan: Romero care Subjective Date/time seen: 01/12/22 10:11 no new complaints Exam Const: General: comfortable, no acute distress, well developed, alert, awake, ill appearing acutely, average body habitus and overweight Nutritional Appearance: average body habitus and overweight Orientation/consciousness: patient oriented x3 HENMT: Head: normal to inspection, normocephalic and atraumatic Ears: hearing grossly normal bilaterally Face/Nose/Sinus: normal facial exam Face and sinus: normal facial exam Eyes: General: appearance normal, both eyes and all related structures Pupils: Equal, round and reactive pupils present EOM: EOMs intact bilaterally Neck: Neck: full ROM, no lymphadenopathy and no JVD Thyroid: thyroid normal Lymphatic: no lymphadenopathy noted Resp: Effort & Inspection: normal respiratory effort and able to speak in complete sentences Auscultation: clear to auscultation bilaterally Cardio: Jugular venous distension: no JVD Rate: regular rate Rhythm: regular rhythm Heart sounds: S1 normal heart sound present and S2 normal heart sound present GI: Inspection: other ( supply pubic catheter in place) : General: Yes deferred Skin: Rashes: no rashes Other: suprapubic catheter Neuro: General: patient oriented x3, CN's II-XI intact bilaterally and Unable to assess gait Cranial nerves: Yes CN's II-XII intact bilaterally and Yes Equal, round and reactive pupils present Cognition (Neuro): normal cognition Speech: normal speech Gait exam (Neuro): Unable to assess gait Motor exam (neuro): 5/5 motor strength present throughout Sensory Exam: No Sensory deficit (Neuro) Extrem: General: normal to inspection, full ROM, no joint enlargement and no pedal edema Objective Data Vital Signs Vital Signs: Vital Signs - 24 hr 01/11/22 14:00 01/11/22 19:34 01/11/22 20:28 Temperature 96.8 F L Pulse Rate 63 66 Respiratory Rate 14 Blood Pressure 129/54 L Pulse Oximetry 96 96 Oxygen Delivery Room Air 01/11/22 22:00 01/12/22 06:00 01/12/22 09:17 Temperature 97.1 F L 97.8 F Pulse Rate 70 69 70 Respiratory Rate 16 17 Blood Pressure 130/60 103/48 L Pulse Oximetry 98 96 Oxygen Delivery Intake/Output Intake/Output: Intake & Output 01/09/22 01/10/22 01/11/22 01/12/22 23:59 23:59 23:59 23:59 Intake Total 3224 1570 2146 Output Total 3450 3100 2650 2550 [facility] -226 -1530 -504 -2550 Meds/Results Medications: Active Medications Generic Name Dose Route Start Last Admin Trade Name Kimberlyn PRN Reason Stop Dose Admin Acetaminophen 650 mg 01/07/22 21:43 Acetaminophen 325 Mg Tablet PO Q4H PRN Mild Pain (1-3) or Fever Lipase/Protease/Amylase 6 cap 01/08/22 08:00 01/12/22 09:16 Lipase/Amylase/Protease 12,000 Units Cap PO 6 cap TIDWM ANGIE Administration Aspirin 81 mg 01/08/22 09:00 01/12/22 09:17 Aspirin 81 Mg Enteric Tablet PO 81 mg DAILY ANGIE Administration Carvedilol 25 mg 01/08/22 09:00 01/12/22 09:17 Carvedilol 25 Mg Tablet PO 25 mg Q12HR ANGIE Administration Dextrose 12.5 gm 01/08/22 14:48 Dextrose 50% 25 Gm/50 Ml Syringe IV PUSH P
[2022-01-12 12:04] LABS: Glucose Point of Care 269 mg/dl (65-105)
[2022-01-12 14:00] VITALS: BP 95/52; PULSE 62; RESP 20; TEMP 36.3; O2SAT 97
[2022-01-12] MEDS: ERTAPENEM 1 GM/NS 50 ML 1 GM/50 ML BAG IVPB (15:35)
[2022-01-12 16:59] LABS: Glucose Point of Care 270 mg/dl (65-105)
[2022-01-12 20:49] VITALS: PULSE 62
[2022-01-12] MEDS: rOPINIRole HCL 0.25 MG TABLET PO (20:50)
[2022-01-12] MEDS: INSULIN GLARGINE (*BKC) 100 UNITS/ML 16 UNITS SUB-Q (20:53)
[2022-01-12 21:16] LABS: Glucose Point of Care 319 mg/dl (65-105)
[2022-01-12 21:32] VITALS: PULSE 59; RESP 15; O2SAT 98
[2022-01-12 22:00] VITALS: BP 98/50; PULSE 56; RESP 16; TEMP 36.2; O2SAT 97
[2022-01-12] MEDS: INSULIN ASPART (*BKC) 100 UNITS/ML 6 UNITS SUB-Q (22:01)
[2022-01-13 03:14] VITALS: PULSE 71; RESP 12; O2SAT 99
[2022-01-13 06:00] VITALS: BP 110/52; PULSE 54; RESP 17; TEMP 36.4; O2SAT 97
[2022-01-13 08:10] LABS: Glucose Point of Care 107 mg/dl (65-105)
[2022-01-13] MEDS: GABAPENTIN 300 MG CAPSULE 600 MG PO (08:28)
[2022-01-13] MEDS: lisinopriL 2.5 MG TABLET PO (08:30)
[2022-01-13] MEDS: CHOLECALCIFEROL 1,000 UNITS TABLET 2000 UNITS PO (08:30)
[2022-01-13] MEDS: ASPIRIN 81 MG ENTERIC TABLET PO (08:30)
[2022-01-13] MEDS: LIPASE/AMYLASE/PROTEASE 12,000 UNITS CAP 6 CAP PO ×2 (08:30→12:28)
[2022-01-13] MEDS: FENOFIBRATE NANOCRYSTALLIZED 145 MG TABLET PO (08:30)
[2022-01-13] MEDS: ROSUVASTATIN 10 MG TABLET 40 MG PO (08:30)
[2022-01-13] MEDS: PANTOPRAZOLE 40 MG TABLET PO (08:30)
[2022-01-13] MEDS: ISOSORBIDE MONONITRATE 15 MG TAB.ER.24H PO (08:30)
[2022-01-13] MEDS: polyethylene glycoL 3350 17 GM POWD.PACK PO (08:31)
[2022-01-13 08:34] VITALS: PULSE 57
[2022-01-13] MEDS: carvediloL 25 MG TABLET PO (08:34)
[2022-01-13] MEDS: INSULIN ASPART (*BKC) 100 UNITS/ML SUB-Q ×3 (09:21→12:25)
[2022-01-13] MEDS: ERTAPENEM 1 GM/NS 50 ML 1 GM/50 ML BAG IVPB (11:12)
--- NOTE | 2022-01-13 11:52 | PM.DS ---
DS: Admitting Diagnosis Discharge Date January 13, 2022 Admitting Diagnosis UTI, multidrug resistant DS: Discharge Diagnosis Discharge Diagnosis (1) Urinary tract infection: Code(s): N39.0 - Urinary tract infection, site not specified Status: Acute Assessment and Plan: recurrent. Likely from chronic suprapubic catheter patient started on ertapenem cultures noted continue IV antibiotics to complete 7 days. (2) Dysuria: Code(s): R30.0 - Dysuria Status: Acute Assessment and Plan: as above (3) Insulin dependent diabetes mellitus: Status: Acute Assessment and Plan: Accu-Cheks AC and HS carb consistent diet patient on insulin pump at home continue glargine insulin sliding scale as needed (4) Chronic indwelling Romero catheter: Code(s): Z97.8 - Presence of other specified devices Status: Acute Assessment and Plan: Romero care DS: Summary Hospital Course Hospital Course: submitted for multidrug resistant UTI. Patient was started on ertapenem cultures are noted. Seven days of ertapenem given he can follow-up with Urology Time Spent with Patient Time attestation: Total time spent providing and/or coordinating discharge services: Exam Const: General: comfortable, no acute distress, well developed, alert, awake, ill appearing acutely, average body habitus and overweight Nutritional Appearance: average body habitus and overweight Orientation/consciousness: patient oriented x3 HENMT: Head: normal to inspection, normocephalic and atraumatic Ears: hearing grossly normal bilaterally Face/Nose/Sinus: normal facial exam Face and sinus: normal facial exam Eyes: General: appearance normal, both eyes and all related structures Pupils: Equal, round and reactive pupils present EOM: EOMs intact bilaterally Neck: Neck: full ROM, no lymphadenopathy and no JVD Thyroid: thyroid normal Lymphatic: no lymphadenopathy noted Resp: Effort & Inspection: normal respiratory effort and able to speak in complete sentences Auscultation: clear to auscultation bilaterally Cardio: Jugular venous distension: no JVD Rate: regular rate Rhythm: regular rhythm Heart sounds: S1 normal heart sound present and S2 normal heart sound present GI: Inspection: other ( supply pubic catheter in place) : General: Yes deferred Skin: Rashes: no rashes Other: suprapubic catheter Neuro: General: patient oriented x3, CN's II-XI intact bilaterally and Unable to assess gait Cranial nerves: Yes CN's II-XII intact bilaterally and Yes Equal, round and reactive pupils present Cognition (Neuro): normal cognition Speech: normal speech Gait exam (Neuro): Unable to assess gait Motor exam (neuro): 5/5 motor strength present throughout Sensory Exam: No Sensory deficit (Neuro) Extrem: General: normal to inspection, full ROM, no joint enlargement and no pedal edema DS: Data Data Completed and Pending Labs on day of discharge: Labs from last 24 hours 01/13/22 01/12/22 01/12/22 08:06 20:52 16:43 POC Capillary Glucose 107 H 319 H 270 H 01/12/22 11:41 POC Capillary Glucose 269 H Discharge Plan Discharge Attending physician on discharge: Dougie Bolaños Consulting providers: Denis Pennington Discharging Clinician: Dougie Bolaños Patient Disposition: Home, Self-Care Activity: no preference Diet: as tolerated Patient Instructions: Antibiotic Form Stand Alone Forms: General Discharge Information Follow-up/Referrals: Denis Pennington MD [Physician] - Discharge Medications: Continued carvedilol 25 mg tablet 25 mg PO Q12-24H Rx Instructions: Q12h oxybutynin chloride 10 mg tablet extended release 24hr 10 mg PO DAILY isosorbide mononitrate 30 mg tablet extended release 24 hr 15 mg PO DAILY aspirin 81 mg tablet,delayed release (DR/EC) 81 mg PO DAILY pantoprazole 40 mg tablet
[2022-01-13 12:12] LABS: Glucose Point of Care 221 mg/dl (65-105)
== END 2022-01-13 13:32 | disposition home or self-care (01) | DRG 699 ==
LOC: ANHED 22:03 → ANH3MEDSUR 23:00
PROVIDERS: Hospitalist; Admitting Provider Internal Medicine; Emergency Provider Emergency Medicine; Visit Provider Chiropractor
DX: T83.510A Infection and inflammatory reaction due to cystostomy catheter, initial encounter (principal); N39.0 Urinary tract infection, site not specified; Z16.12 Extended spectrum beta lactamase (ESBL) resistance; B96.1 Klebsiella pneumoniae [K. pneumoniae] as the cause of diseases classified elsewhere; I10 Essential (primary) hypertension; E78.5 Hyperlipidemia, unspecified; Z20.822 Contact with and (suspected) exposure to COVID-19; N40.1 Benign prostatic hyperplasia with lower urinary tract symptoms; R33.8 Other retention of urine; E11.42 Type 2 diabetes mellitus with diabetic polyneuropathy; G25.81 Restless legs syndrome; K75.81 Nonalcoholic steatohepatitis (NASH)
CPT/HCPCS: 36415; 71046; 80048; 80053; 81001; 82948; 83605; 83690; 84484; 85025; 85610; 85730; 86140; 87040; 87077; 87086; 87088; 87186; 87637; 93005; 94660; 99285; A9270; J1335; J1815; J7030

== ENCOUNTER 2022-07-17 15:26 | Emergency (ER) | payer MEDICARE, SELFPAY ==
--- NOTE | ~2022-07-17 | CT_ITS ---
EXAMINATION: CT abdomen pelvis wo con DATE: 07/17/2022 16:12 INDICATION: Abdominal pain. TECHNIQUE: Computed tomography (CT) of the abdomen and pelvis was performed without intravenous contr ast. Automated exposure control and iterative reconstruction technique were employed. The dose-length product was 763.02 mGy-cm. COMPARISON: CT abdomen and pelvis 12/26/2021 FINDINGS: The visualized portions of the lung bases demonstrate mild atelectasis. No pleural effusion . The heart size is normal. There are coronary artery calcifications. No pericardial effusion. Pneumo bilia is noted, likely secondary to sphincterotomy. The changes of cholecystectomy. The spleen, pancr eas, adrenal glands, and right kidney are normal. There is a 15 mm cyst in left kidney. There is no u rolithiasis. The prostate is mildly enlarged. There is a suprapubic catheter in expected position. Th ere is diffuse bladder wall thickening. There is a left inguinal hernia containing fat. There are no dilated loops of bowel. The appendix is normal. There are no pathologically enlarged lymph nodes. The re is no free intraperitoneal fluid. There is mild lumbar spondylosis. There are bridging endplate os teophytes at multiple levels in the spine, consistent with diffuse idiopathic skeletal hyperostosis ( DISH). There are benign bone islands in L2 and the sacrum. IMPRESSION: 1. Diffuse bladder wall thickening again seen, consistent with cystitis. 2. Left inguinal hernia fat. Reviewed, dictated and finalized at location A.
[2022-07-17 15:27] VITALS: BP 141/64; PULSE 82; RESP 18; TEMP 36.4; O2SAT 96
--- NOTE | 2022-07-17 16:02 | ED.MALEGU ---
HPI - Male Genitourinary General Chief complaint: Urogenital-Male Stated complaint: UTI Time Seen by Provider: 07/17/22 15:55 History of Present Illness HPI Narrative: 66-year-old male history of diabetes, hypertension, dyslipidemia, CAD and chronic indwelling Romero catheter due to BPH presents to the emergency room for evaluation of lower abdominal pain, discharge around his suprapubic catheter, weakness, and fatigue. Patient states he had his suprapubic catheter changed every 4 weeks, and was told by urologist that he had a urinary tract infection. Patient states he was put on antibiotic, but does not recall which one. States that he was at a theme park yesterday and became dizzy and had a presyncopal event after riding a ride. Patient also reports dysuria. Related Data Home Medications Medication Instructions Recorded Confirmed aspirin 81 mg tablet,delayed 81 mg PO DAILY 01/07/22 01/07/22 release blood-glucose sensor (Dexcom G6 01/07/22 01/07/22 Sensor device) blood-glucose transmitter (Dexcom 01/07/22 01/07/22 G6 Transmitter device) carvedilol 25 mg tablet 25 mg PO Q12-24H 01/07/22 01/07/22 cholecalciferol (vitamin D3) 25 50 mcg PO DAILY 01/07/22 01/07/22 mcg (1,000 unit) tablet (Vitamin D3) fenofibrate nanocrystallized 145 145 mg PO DAILY 01/07/22 01/07/22 mg tablet gabapentin 300 mg capsule 600 mg PO BID 01/07/22 01/07/22 insulin glargine 100 unit/mL (3 16 unit subcut HS 01/07/22 01/07/22 mL) subcutaneous pen (Basaglar KwikPen U-100 Insulin) insulin pump cart,cont inf,BT 01/07/22 01/07/22 (Omnipod Dash Pods (Gen 4) subcutaneous cartridge) isosorbide mononitrate 30 mg 15 mg PO DAILY 01/07/22 01/07/22 tablet,extended release 24 hr [id number]-[id number] 3 cap PO TIDWMEAL 01/07/22 01/07/22 24,000-76,000-120,000 unit capsule,delayed rel (Creon) lisinopril 2.5 mg tablet 2.5 mg PO DAILY 01/07/22 01/07/22 metformin 1,000 mg tablet 1,000 mg PO Q12-24H 01/07/22 01/07/22 oxybutynin chloride 10 mg 10 mg PO DAILY 01/07/22 01/07/22 tablet,extended release 24 hr pantoprazole 40 mg tablet,delayed 40 mg PO DAILY 01/07/22 01/07/22 release pen needle, diabetic 31 gauge x 01/07/22 01/07/22 1 (UltiCare Pen Needle) pen needle, diabetic 31 gauge x 01/07/22 01/07/22 14 (UltiCare Pen Needle) polyethylene glycol 3350 17 17 g PO BID 01/07/22 01/07/22 gram/dose oral powder ropinirole 0.25 mg tablet 0.25 mg PO HS 01/07/22 01/07/22 rosuvastatin 40 mg tablet (Crestor) 40 mg PO DAILY 01/07/22 01/07/22 Allergies Allergy/AdvReac Type Severity Reaction Status Date / Time iohexol Allergy Difficulty Verified 07/17/22 15:41 [From contrast - CT, X-RAY] Breathing [facility] Past Medical History Medical History Hyperlipidemia Hypertension Insulin dependent diabetes mellitus Suprapubic catheter Urinary tract infection Social History Social History Smoking status: Never smoker Second hand tobacco smoke exposure: No Alcohol intake: never Substance use: never Substance use type: does not use Lack of Transportation: No Lack of Food: Never True Current Housing: I Have Housing Concerned About Future Housing: No Difficulty Paying Gas/Electric Bills: No Difficulty Paying for Meds: No Currently Unemployed: No Education: Decline to Answer Difficulty w/ Childcare or Family Care: No Gender identity (if verbalized by the patient): Male Spiritual care concerns: No Course Vital Signs Vital signs: Vital Signs Temperature 36.4 C 07/17/22 15:27 Pulse Rate 82 07/17/22 15:27 Respiratory Rate 18 07/17/22 15:27 Blood Pressure 141/64 H 07/17/22 15:27 Pulse Oximetry 96 07/17/22 15:27 Oxygen Delivery Room Air 06/07/23 15:27 Temperature 36.4 C 07/17/22 15:27 Pulse Rate 82 07/17/22 15:27 Respiratory Rate 18 07/17/22 15:
--- NOTE | 2022-07-17 16:05 | ECG_ITS ---
Measurements Intervals [place] Rate: 73 P: 16 MS: 133 QRS: 4 QRSD: 90 T: 15 QT: 393 QTc: 434 Interpretive Statements SINUS RHYTHM NONSPECIFIC ST AND T WAVE ABNORMALITY COMPARED TO ECG 01/07/2022 21:50:32 NO SIGNIFICANT CHANGES Electronically Signed On 07-18-2022 10:44:05 CDT by Svetlana Meredith M.D.
[2022-07-17] MEDS: SODIUM CHLORIDE 0.9% IV 1,000 ML 999 ML IV CONT (16:16)
[2022-07-17 16:24] VITALS: BP 120/66; PULSE 67; RESP 20; O2SAT 97
[2022-07-17 16:29] LABS: Basophils Absolute Auto 0.1 K/mm3 (0.0-0.1); Basophils Percent Auto 0.8 % (0.2-1.2); Eosinophils Absolute Auto 0.1 K/mm3 (0-0.3); Eosinophils Percent Auto 1.7 % (0-4.4); Immature Granulocyte Absolute 0.04 K/mm3 (0.00-0.031); Immature Granulocyte Percent A 0.5 % (0-0.5); Lymphocytes Absolute Auto 2.39 K/mm3 (0.9-3.2); Lymphocytes Percent Auto 31.3 % (18.3-44.2); Mean Corpuscular HGB Conc 34.1 g/dl (32-36); Mean Corpuscular Hemoglobin 30.8 pg (26-34); Mean Corpuscular Volume 90.3 fl (80-100); Monocytes Absolute Auto 0.7 K/mm3 (0.1-0.6); Monocytes Percent Auto 9.3 % (2.6-8.5); Neutrophils Absolute Auto 4.3 K/mm3 (1.3-6.7); Neutrophils Percent Auto 56.4 % (45.5-73.1); Platelet Count Result 219 k/mm3 (150-375); Red Blood Count 4.87 M/mm3 (4.6-6.20); Red Cell Distribution Width 13.4 % (11.5-14.5); White Blood Count 7.6 K/mm3 (4.5-10.0)
[2022-07-17 16:38] LABS: Appearance Urine Cloudy (Clear); Bacteria Urine Rare /hpf; Bilirubin Urine Negative (Negative); Blood Urine Trace (Negative); Color Urine Yellow (Yellow); Glucose Urine UA 1+ mg/dL (Negative); Ketones Urine Negative (Negative); Leukocyte Esterase Ur 3+ LEU/UL (Negative); Nitrate Urine Positive (Negative); Non Pathogenic Casts 0-2; Protein Urine 1+ mg/dL (Negative); RBC Urine 0-2 /hpf (0-2); Specific Grav Ur 1.022 (1.001-1.035); Squamous Epithelial Cell Urine None seen /hpf (Few); Urobilinogen Urine 0.2 mg/dL (<2.0); WBC Urine >100 /hpf; pH Urine 5.5 (5.0-9.0)
[2022-07-17 16:41] LABS: Alanine Aminotransferase 30 U/L (6-50); Albumin Level 4.2 g/dL (3.5-5.1); Alkaline Phosphatase 76 U/L (38-126); Anion Gap 5 mmol/L (8-16); Aspartate Amino Transferase 35 U/L (17-59); Bilirubin,Total 0.9 mg/dL (0.2-1.3); Blood Urea Nitrogen 18 mg/dL (9-20); Calcium 8.7 mg/dL (8.4-10.2); Carbon Dioxide 29 mmol/L (22-30); Chloride 102 mmol/L (98-107); Estimated CRCL calculation 64 ml/min; Estimated Glomerular Filt Rate > 60; Glucose 206 mg/dL (65-110); Lactic Acid Reflex 1.4 mmol/L (0.7-2.0); Potassium 4.1 mmol/L (3.4-5.0); Sodium 136 mmol/L (137-145)
[2022-07-17 16:42] LABS: Add Urine Microscopic? YES
[2022-07-17 16:52] LABS: Troponin I < 0.012 ng/mL (0.000-0.034)
[2022-07-17 17:12] VITALS: BP 123/71; PULSE 73; RESP 16; O2SAT 97
[2022-07-17 17:30] VITALS: BP 117/75; PULSE 80; RESP 16; O2SAT 100
--- NOTE | 2022-07-17 17:43 | PC.NURSE ---
upon discharge, patient reports that his BS is dropping. OJ x4 given, as well as a fruit cup. patient's sugar did not come up at this time. provider aware. patient is A&Ox4. patient given soda and sandwich. sitting in bed at this time. will continue to monitor. call light within reach
--- NOTE | 2022-07-17 17:55 | PC.NURSE ---
patient reports BS is coming back up and he feels better. ok to discharge
== END 2022-07-17 17:56 | disposition home or self-care (01) ==
PROVIDERS: Family Medicine; Emergency Provider Nurse Practitioner Family
DX: T83.510A Infection and inflammatory reaction due to cystostomy catheter, initial encounter (principal); N39.0 Urinary tract infection, site not specified; E11.9 Type 2 diabetes mellitus without complications; I10 Essential (primary) hypertension; I25.10 Atherosclerotic heart disease of native coronary artery without angina pectoris; Z79.82 Long term (current) use of aspirin; Z79.4 Long term (current) use of insulin; Z79.84 Long term (current) use of oral hypoglycemic drugs; R94.31 Abnormal electrocardiogram [ECG] [EKG]; K40.90 Unilateral inguinal hernia, without obstruction or gangrene, not specified as recurrent; Y84.6 Urinary catheterization as the cause of abnormal reaction of the patient, or of later complication, without mention of misadventure at the time of the procedure
CPT/HCPCS: 36415; 74176; 80053; 81001; 83605; 84484; 85025; 87040; 87086; 87088; 93005; 96365; 99284; J0696; J7030